=== PATIENT | female | born 2000 | race Caucasian/White ===

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

== ENCOUNTER 2019-03-31 10:30 | Day surgery (SDC) | payer OTHER ==
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
[2019-03-31] MEDS ORDERED: fentaNYL 100 MCG/2 ML VIAL IVP ONE (10:31)
[2019-03-31] MEDS ORDERED: PROPOFOL 200 MG/20 ML VIAL IVP ONE (10:31)
[2019-03-31] MEDS ORDERED: MIDAZOLAM 2 MG/2 ML VIAL IVP ONE (10:31)
[2019-03-31] MEDS ORDERED: LACTATED RINGERS 1,000 ML IV ONE (10:39)
[2019-03-31 11:17] LABS: HCG UR QUAL NEGATIVE
[2019-03-31] MEDS ORDERED: LIDOCAINE MPF 2%-EPI 1:200000 20 ML VIAL ONE (11:48)
[2019-03-31] MEDS ORDERED: LIDOCAINE 2%-EPI 1:100000 20 ML MDV SUBQ ONE ×2 (12:11)
[2019-03-31] MEDS ORDERED: SIMETHICONE 40 MG/0.6 ML 30 ML BOTTLE ONE (12:29)
[2019-03-31] MEDS ORDERED: SILVER NITRATE APPLICATOR TOP ONE ×2 (12:29→12:30)
[2019-03-31] MEDS ORDERED: LIDOCAINE 2% URO-JET 5 ML SYRINGE UR ONE (12:51)
[2019-03-31] MEDS ORDERED: KETOROLAC 30 MG/ML VIAL IVP PRN (13:05)
--- NOTE | 2019-03-31 13:05 | ANESTHESIA ---
Pre-Anesthesia VS, & Labs - Diagnosis pelvic pain, unable to evaluate in office - Procedure exam under anesthesia, partial hymenectomy Vital Signs: Temp Pulse Resp BP Pulse Ox 36.6 C 81 17 126/72 98 03/31/19 12:40 03/31/19 12:40 03/31/19 12:40 03/31/19 12:40 03/31/19 12:40 Height 5 ft 7 in Weight (kg) 98.3 kg Body Mass Index 26.9 - NPO >8 hours - Is Patient ?: No Home Medications and Allergies Home Medications: Ambulatory Orders Escitalopram Oxalate [Lexapro] 20 mg PO DAILY PM 03/30/19 Multivitamin [Multivitamins] 1 each PO DAILY 03/30/19 Psyllium Husk [Fiber] 0.4 gm PO BID 03/31/19 Cholecalciferol [Vitamin D3] 5,000 cap PO DAILY 04/16/17 Escitalopram Oxalate [Lexapro] 20 mg PO DAILY PM 03/30/19 Multivitamin [Multivitamins] 1 each PO DAILY 03/30/19 Psyllium Husk [Fiber] 0.4 gm PO BID 03/31/19 Allergies/Adverse Reactions: Allergies Allergy/AdvReac Type Severity Reaction Status Date / Time prednisone AdvReac extreme Verified 03/31/19 11:04 shaking Anes History & Medical History - Anesthetic History Anesthesia Complications: reports: No previous complications - Medical History Cardiovascular: reports: None Pulmonary: reports: None Gastrointestinal: reports: None Urinary: reports: Chronic bladder infection Musculoskeletal: reports: None Endocrine/Autoimmune: reports: None Skin: reports: None Smoking Status: Never smoker Exam General: Alert Dental: WNL Mallampati classification: II Thyromental Distance: greater than 6 cm Respiratory: Lungs clear Cardiovascular: Regular rate Mental/Cognitive Status: Alert/Oriented X3 Plan Anesthesia Type: MAC Consent for Procedure(s) Verified and Reviewed: Yes Code Status: Attempt Resuscitation ASA classification: 2-Mild systemic disease Is this case an emergency?: No
[2019-03-31] MEDS ORDERED: ACETAMINOPHEN 1,000 MG/100 ML 100 ML IV ONE ×2 (13:06→13:16)
[2019-03-31] MEDS ORDERED: KETOROLAC 30 MG/ML VIAL ONE (13:15)
[2019-03-31 14:12] VITALS: BP 133/62
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
== END 2019-03-31 10:31 | disposition home or self-care (01) ==
LOC: SDS 10:30
PROVIDERS: ATTEND Obstetrics & Gynecology
PROC: 0UBK7ZZ Excision of Hymen, Via Natural or Artificial Opening (ICD-10-PCS; principal; 2019-03-31 11:30)
DX: N89.6 Tight hymenal ring (principal); N94.11 Superficial (introital) dyspareunia; Z62.810 Personal history of physical and sexual abuse in childhood
CPT/HCPCS: 56700; 81025; J0131; J7120

== ENCOUNTER 2019-04-19 20:10 | Emergency (ER) | payer OTHER ==
[2019-04-19 20:17] VITALS: BP 141/76
[2019-04-19 20:39] LABS: BASOPHILS % (AUTO) 0.5 %; EOSINOPHILS # (AUTO) 0.4 10^3/uL (0.0-0.7); EOSINOPHILS % (AUTO) 4.3 %; HGB - HEMOGLOBIN 12.8 g/dL (12.0-16.0); LYMPHOCYTES # (AUTO) 3.1 10^3/uL (1.5-3.5); LYMPHOCYTES % (AUTO) 35.7 %; MEAN CORPUSCULAR HEMOGLOBIN 27.8 pg (27.0-31.0); MEAN CORPUSCULAR HGB CONC 31.8 g/dL (32.0-36.0); MEAN CORPUSCULAR VOLUME 87.4 fL (81.0-99.0); MEAN PLATELET VOLUME 9.6 fL (7.9-10.8); MONOCYTES # (AUTO) 0.7 10^3/uL (0.0-1.0); MONOCYTES % (AUTO) 7.6 %; NEUTROPHILS # (AUTO) 4.5 10^3/uL (1.5-6.6); NEUTROPHILS % (AUTO) 51.8 %; PLT - PLATELET COUNT 388 10^3/uL (130-450); RED BLOOD COUNT 4.61 10^6/uL (4.20-5.40); RED CELL DISTRIBUTION WIDTH 12.6 % (12.0-15.0); WHITE BLOOD COUNT 8.6 x10^3/uL (4.8-10.8)
[2019-04-19 20:54] LABS: ALBUMIN 4.1 g/dL (3.2-5.5); BILIRUBIN,TOTAL 0.5 mg/dL (0.2-1.0); CALCIUM 9.5 mg/dL (8.5-10.3); CREATININE 0.6 mg/dL (0.4-1.0); TOTAL PROTEIN 8.4 g/dL (6.7-8.2)
--- NOTE | 2019-04-19 21:10 | XRAY Report ---
Reason: chest pain Procedure Date: 04/19/2019 Accession Number: [id number] / [id number] Procedure: XR - Chest 2 View X-Ray CPT Code: 21883 Final Report FULL RESULT: EXAM: CHEST RADIOGRAPHY EXAM DATE: 04/19/2019 08:44 PM. CLINICAL HISTORY: Chest pain. COMPARISON: CHEST 2 VIEW 08/20/2018 10:23 PM CHEST W/O 08/26/2018 12:43 PM. TECHNIQUE: 2 views. FINDINGS: Lungs/Pleura: No focal opacities evident. No pleural effusion. No pneumothorax. Normal volumes. Mediastinum: Heart and mediastinal contours are unremarkable. Other: No acute osseous abnormalities. IMPRESSION: 1. No disease in the chest. RADIA
[2019-04-19 22:30] LABS: BILIRUBIN,URINE NEGATIVE (NEGATIVE); GLUCOSE, URINE (UA) NEGATIVE (NEGATIVE); KETONES,URINE (UA) NEGATIVE (NEGATIVE); LEUKOCYTE ESTERASE, URINE NEGATIVE (NEGATIVE); NITRITE,URINE NEGATIVE (NEGATIVE); OCCULT BLOOD,URINE LARGE (NEGATIVE); PH,URINE 6.5 PH (5.0-7.5); PROTEIN,URINE NEGATIVE (NEGATIVE); UROBILINOGEN,URINE 0.2 (NORMAL) E.U./dL (NORMAL)
[2019-04-19 22:32] LABS: CLARITY,URINE CLEAR (CLEAR); HCG UR QUAL NEGATIVE
[2019-04-19 22:38] LABS: BACTERIA,URINE Rare /HPF (None Seen); RBC,URINE TNTC /HPF (0-5); SQUAMOUS EPITHELIAL CELL,UR FEW Squamous (<= Few)
== END 2019-04-19 21:15 | disposition left against medical advice (07) ==
LOC: ED 20:10
DX: Z53.21 Procedure and treatment not carried out due to patient leaving prior to being seen by health care provider (principal)
CPT/HCPCS: 36415; 71046; 80053; 81001; 81003; 81025; 83690; 85025; 87086; 93005

== ENCOUNTER 2019-05-16 20:17 | Emergency (ER) | payer OTHER ==
[2019-05-16 20:26] VITALS: BP 132/69
== END 2019-05-16 20:54 | disposition left against medical advice (07) ==
LOC: ED 20:17
DX: Z53.21 Procedure and treatment not carried out due to patient leaving prior to being seen by health care provider (principal)

== ENCOUNTER 2019-05-26 08:00 | Outpatient (CLI) | payer OTHER | END 2019-05-26 23:59 | disposition home or self-care (01) | LOC: LAB.WCP 08:00 | PROVIDERS: ATTEND Physician Assistant | DX: F41.9 Anxiety disorder, unspecified (principal); M25.50 Pain in unspecified joint | CPT/HCPCS: 36415; 84443; 85651; 86038 ==

== ENCOUNTER 2019-08-20 04:50 | Emergency (ER) | payer OTHER ==
--- NOTE | 2019-08-20 05:01 | ED Physician Documentation ---
PD HPI FEMALE - Stated complaint Stated Complaint: FEM /CRAMPING - Chief complaint Chief Complaint: Abd Pain - History obtained from History obtained from: Patient - History of Present Illness Timing - onset: How many hours ago (4) Timing - duration: Hours Timing - details: Gradual onset, Constant, Waxing and waning Pain level max: 6 Associated symptoms: Pelvic pain, Vaginal bleeding. No: Fever Contributing factors: IUD. No: - Additional information Additional information: patient had IUD placed 08/10. She c/o 4 hours of pelvic cramping with vaginal bleeding. She says she had similar, though milder, pelvic cramping several days ago but otherwise has not had this cramping before. Review of Systems Constitutional: denies: Fever, Chills, Sweats GI: denies: Abdominal Pain, Nausea, Vomiting : denies: Dysuria, Frequency, Now EGA PD PAST MEDICAL HISTORY - Past Medical History Past Medical History: Yes Cardiovascular: None Respiratory: None Endocrine/Autoimmune: None GI: None : Chronic bladder infection HEENT: None Psych: Depression, Anxiety Musculoskeletal: None Derm: None Other Past Medical History: Fibromyalgia - Past Surgical History Past Surgical History: No - Present Medications Home Medications: Ambulatory Orders Medication Instructions Recorded Confirmed Cholecalciferol [Vitamin D3] 5,000 cap PO DAILY 04/16/17 03/30/19 Albuterol Sulf [Ventolin Hfa 1 - 2 puffs INH Q4HR PRN #1 inhaler 08/20/18 03/31/19 Inhaler] Escitalopram Oxalate [Lexapro] 20 mg PO DAILY PM 03/30/19 03/30/19 Multivitamin [Multivitamins] 1 each PO DAILY 03/30/19 03/30/19 Psyllium Husk [Fiber] 0.4 gm PO BID 03/31/19 03/31/19 - Allergies Allergies/Adverse Reactions: Allergies Allergy/AdvReac Type Severity Reaction Status Date / Time prednisone AdvReac extreme Verified 08/20/19 04:53 shaking - Social History Does the pt smoke?: No Smoking Status: Never smoker Does the pt drink ETOH?: No Does the pt have substance abuse?: Yes Substance Use and Type: Marijuana - Immunizations Immunizations are current?: Yes - POLST Patient has POLST: No PD ED PE NORMAL - Vitals Vital signs reviewed: Yes - General General: Alert and oriented X 3, Well developed/nourished, Other (appears uncomfortable and very anxious) - Abdomen Abdomen: Soft, Non tender - Back Back: No CVA TTP PD ED PE EXPANDED - Female Female : Normal external, Vaginal Bleeding (scant), Member Services Representative present (RN Carli Ho) Results - Vitals Vitals: Vital Signs - 24 hr 08/20/19 08/20/19 04:53 05:04 Temperature 36.9 C Heart Rate 88 110 H Respiratory 20 20 Rate Blood Pressure 151/87 H O2 Saturation 100 100 Oxygen O2 Source Room air PD MEDICAL DECISION MAKING - ED course Complexity details: considered differential, d/w patient ED course: Patient contacted her beam press operator and was advised to go to ED for removal of IUD, which she requests to have performed. I was able to remove the IUD without difficulty or complications and she appeared comfortable and no longer anxious, requests d/c home. I encouraged her to f/u with beam press operator but return if worse in any way. Departure - Departure Disposition: 01 Home, Self Care Clinical Impression: Pelvic pain Condition: Good Instructions: ED Pelvic Pain [facility] Follow-Up: Oleksandr Newton MD [Provider Admit Priv/Credential] - Discharge Date/Time: 08/20/19 05:38
[2019-08-20 05:05] VITALS: BP 151/87
== END 2019-08-20 05:38 | disposition home or self-care (01) ==
LOC: ED 04:50
DX: R10.2 Pelvic and perineal pain (principal); N93.9 Abnormal uterine and vaginal bleeding, unspecified; Z30.432 Encounter for removal of intrauterine contraceptive device
CPT/HCPCS: 58301; 99283

== ENCOUNTER 2019-10-18 06:28 | Emergency (ER) | payer OTHER ==
--- NOTE | 2019-10-18 07:01 | ED Physician Documentation ---
PD HPI HEENT - Stated complaint Stated Complaint: BUMP BEHIND R EAR - Chief complaint Chief Complaint: Heent - History obtained from History obtained from: Patient - History of Present Illness Timing - onset: How many days ago (few) Timing - duration: Days (few) Timing - details: Gradual onset (but much bigger the past day) Location: Right ear (behind the ear. No noted injury, rash, sores prior. Noted some tenderness then progression of swelling over few days. No drainage.) Associated symptoms: No: Fever, Congestion Similar symptoms before: Has not had sx before Review of Systems Ears: denies: Loss of hearing, Drainage/discharge Nose: denies: Rhinorrhea / runny nose, Congestion Throat: denies: Sore throat Respiratory: denies: Cough GI: reports: Nausea (for 1-2 weeks) : reports: Dysuria. 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 : Chronic bladder infection HEENT: None Psych: Depression, Anxiety Musculoskeletal: None Derm: None Other Past Medical History: fibromyalgia, Vaginismus - Past Surgical History Past Surgical History: No - Present Medications Home Medications: Ambulatory Orders Medication Instructions Recorded Confirmed DULoxetine [Cymbalta] 60 mg DAILY 10/18/19 10/18/19 Ethinyl Estradiol/Drospirenone 1 tab DAILY 10/18/19 10/18/19 [Gillian 28 Tablet] Mupirocin 1 applic TP TID #15 g 10/18/19 Naproxen 375 mg PO BID #20 tablet 10/18/19 Sulfamethox/Trimeth 800/160 1 each PO BID #10 tablet 10/18/19 [Bactrim Ds 800/160] - Allergies Allergies/Adverse Reactions: Allergies Allergy/AdvReac Type Severity Reaction Status Date / Time prednisone AdvReac extreme Verified 10/18/19 06:36 shaking - Social History Does the pt smoke?: No Smoking Status: Never smoker Does the pt drink ETOH?: No Does the pt have substance abuse?: No Substance Use and Type: Marijuana - Immunizations Immunizations are current?: Yes - POLST Patient has POLST: No PD ED PE NORMAL - Vitals Vital signs reviewed: Yes - General General: Alert and oriented X 3, No acute distress, Well developed/nourished - HEENT HEENT: Pharynx benign, Other (TM and canal are normal. behind right ear in postauricular crease shows rounded soft fluctuance bubble about 1 cm diameter raised above surface, with redness of skin surrounding it about 1 cm. No deeper inflammation. ) - Neck Neck: Supple, no meningeal sign, No adenopathy - Cardiac Cardiac: RRR, No murmur - Respiratory Respiratory: Clear bilaterally - Abdomen Abdomen: Soft, Non tender - Back Back: No CVA TTP - Derm Derm: Warm and dry Results - Vitals Vitals: Vital Signs - 24 hr 10/18/19 10/18/19 06:33 08:17 Temperature 36.1 C L Heart Rate 76 63 Respiratory 16 18 Rate Blood Pressure 139/77 H 135/76 H O2 Saturation 99 100 Oxygen O2 Source Room air - Labs Labs: Laboratory Tests 10/18/19 07:40 Urine Color YELLOW Urine Clarity CLEAR Urine pH 6.0 Ur Specific [place] 1.025 Urine Protein NEGATIVE Urine Glucose (UA) NEGATIVE Urine Ketones NEGATIVE Urine Occult Blood NEGATIVE Urine Nitrite NEGATIVE Urine Bilirubin NEGATIVE Urine Urobilinogen 0.2 (NORMAL) Ur Leukocyte Esterase NEGATIVE Ur Microscopic Review NOT INDICATED Urine Culture Comments NOT INDICATED Urine HCG, Qual NEGATIVE Procedures - Abscess I&D (location) right postauricular Preparation: Other (the skin was very thin overlying it, so no anesth needed. Scalpel tip nicked the skin and got about 1 ml of pus out. Culture obtained.) Incision: Incised with scalpel, Purulent drainage, Culture obtained Other: Pt tolerated well PD MEDICAL DECISION MAKING - ED course Complexity details: considered differential (superficial skin abscess. Will treat as staph. ), d/w patient Departure - Departure Disposition: 01 Home, Self Care Clinical Impression: Abscess of skin Qualifiers: Site of cutaneous abscess: head Qualified Code(s): L02.811 - Cutaneous abscess of head [any part, except face] Condition: Stable Record reviewed to determine appropriate education?: Yes Instructions: ED Abscess IandD Follow-Up: Sraah Bautista PA [Primary Care Provider] - Prescriptions: Mupirocin 1 applic TP TID #15 g Naproxen 375 mg PO BID #20 tablet Sulfamethox/Trimeth 800/160 [Bactrim Ds 800/160] 1 each PO BID #10 tablet Comments: Towels to the area periodically through the day today and tomorrow to promote bl ood flow and further drainage. Bactrim antibiotic twice daily for 5 days. Mupirocin topical antibiotic twice daily for 5 days or so until it seems well- healed. The abscess is deflated with the pus out at this time. You will still noticed some inflammation of the skin in the area and that should resolve over several days to week. Naproxen anti-inflammatory 2-3 times a day for the next several days to help with inflammation and pain as well. Recheck if not resolved fully over the next several days. Discharge Date/Time: 10/18/19 08:24
[2019-10-18 07:46] LABS: BILIRUBIN,URINE NEGATIVE (NEGATIVE); GLUCOSE, URINE (UA) NEGATIVE (NEGATIVE); KETONES,URINE (UA) NEGATIVE (NEGATIVE); LEUKOCYTE ESTERASE, URINE NEGATIVE (NEGATIVE); NITRITE,URINE NEGATIVE (NEGATIVE); OCCULT BLOOD,URINE NEGATIVE (NEGATIVE); PROTEIN,URINE NEGATIVE (NEGATIVE); UROBILINOGEN,URINE 0.2 (NORMAL) E.U./dL (NORMAL)
[2019-10-18 07:47] LABS: CLARITY,URINE CLEAR (CLEAR)
[2019-10-18 07:48] LABS: HCG UR QUAL NEGATIVE
[2019-10-18] MEDS ORDERED: SULFAMETH/TRIMETH DS 800/160 MG TABLET PO STA (08:06)
[2019-10-18] MEDS ORDERED: MUPIROCIN 2% OINT 1 GM TOP STA (08:06)
[2019-10-18] MEDS ORDERED: ACETAMINOPHEN 325 MG TABLET PO STA (08:10)
[2019-10-18 08:17] VITALS: BP 135/76
== END 2019-10-18 08:24 | disposition home or self-care (01) ==
LOC: ED 06:28
DX: L02.811 Cutaneous abscess of head [any part, except face] (principal)
CPT/HCPCS: 10060; 81003; 81025; 87070; 87205; 99283; 99284; A9270; 81001; 87077; 87086; 87181

== ENCOUNTER 2019-11-15 07:33 | Outpatient (CLI) | payer OTHER ==
[2019-11-15 12:20] LABS: CRP - C-REACTIVE PROTEIN < 1.0 mg/dL (0-1.0)
[2019-11-15 12:21] LABS: URIC ACID 3.7 mg/dL (2.6-7.2)
[2019-11-15 12:45] LABS: RHEUMATOID FACTOR NEGATIVE (Negative)
== END 2019-11-15 23:59 | disposition home or self-care (01) ==
LOC: LAB.WCP 07:33
PROVIDERS: ATTEND Physician Assistant Medical
DX: M25.50 Pain in unspecified joint (principal)
CPT/HCPCS: 36415; 81599; 84550; 85651; 86038; 86140; 86225; 86430; 86812

== ENCOUNTER 2019-11-23 07:38 | Emergency (ER) | payer OTHER ==
[2019-11-23 07:56] VITALS: BP 137/79
--- NOTE | 2019-11-23 07:58 | ED Physician Documentation ---
PD HPI BACK PAIN - Stated complaint Stated Complaint: BACK/SHOULDER PX - Chief complaint Chief Complaint: Back Pain - Additional information Additional information: 19-year-old with fibromyalgia. Recently started gabapentin at night and also is on duloxetine. She has had pain in the posterior left shoulder towards the spine. She took naproxen and a muscle relaxer without relief. No shortness of breath or chest pain. No possibility of . Pain worse since last night. 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 : Chronic bladder infection HEENT: None Psych: Depression, Anxiety Musculoskeletal: None Derm: None - Past Surgical History Past Surgical History: No - Present Medications Home Medications: Ambulatory Orders Medication Instructions Recorded Confirmed DULoxetine [Cymbalta] 60 mg DAILY 10/18/19 10/18/19 Ethinyl Estradiol/Drospirenone 1 tab DAILY 10/18/19 10/18/19 [Gillian 28 Tablet] Mupirocin 1 applic TP TID #15 g 10/18/19 Naproxen 375 mg PO BID #20 tablet 10/18/19 Sulfamethox/Trimeth 800/160 1 each PO BID #10 tablet 10/18/19 [Bactrim Ds 800/160] Gabapentin [Neurontin] 300 mg PO TID #14 capsule 11/23/19 - Allergies Allergies/Adverse Reactions: Allergies Allergy/AdvReac Type Severity Reaction Status Date / Time prednisone AdvReac extreme Verified 10/18/19 06:36 shaking - Social History Does the pt smoke?: No Smoking Status: Never smoker Does the pt drink ETOH?: No Does the pt have substance abuse?: No - Immunizations Immunizations are current?: Yes - POLST Patient has POLST: No PD ED PE NORMAL - Vitals Vital signs reviewed: Yes - General General: Alert and oriented X 3, No acute distress - Back Back: Other (Mild muscular tenderness of the trapezius and rhomboid on the right and parathoracic and paralumbar muscles bilaterally. No midline spinal tenderness.) - Extremities Extremities: Other (Equal bilateral needle valve operator strength, thumb extension, interosseous strength, flexion extension at the wrist. The patient has equal and normal Achilles and patellar reflexes bilaterally. Normal sensation in all areas of the legs. Patient denies saddle anesthesia. ) - Neuro Neuro: Alert and oriented X 3, Normal speech Results - Vitals Vitals: Vital Signs - 24 hr 11/23/19 07:52 Temperature 36.6 C Heart Rate 81 Respiratory 18 Rate O2 Saturation 100 Oxygen O2 Source Room air PD MEDICAL DECISION MAKING - ED course ED course: 19-year-old with exacerbation of fibromyalgia. No apparent emergency medical condition. Has specific request for tramadol, discussed that risk-benefit ratio for tramadol is very poor, studies show it is no better than Tylenol for pain management and has significant side effects such as seizures. Departure - Departure Disposition: 01 Home, Self Care Clinical Impression: Fibromyalgia muscle pain Condition: Good Record reviewed to determine appropriate education?: Yes Instructions: ED Chronic Pain Management, Fibromyalgia Prescriptions: Gabapentin [Neurontin] 300 mg PO TID #14 capsule Comments: During a flare you can continue naproxen and your muscle relaxer, we are increasing her gabapentin to 3 times a day. You asked for tramadol which is probably not a good medication for management for fibromyalgia in my opinion. Return for new or worsening symptoms. Follow-up with your doctor, next available appointment.
== END 2019-11-23 08:15 | disposition home or self-care (01) ==
LOC: ED 07:38
DX: M79.7 Fibromyalgia (principal); M54.2 Cervicalgia; M54.6 Pain in thoracic spine; M41.9 Scoliosis, unspecified; M25.561 Pain in right knee
CPT/HCPCS: 72040; 72072; 99282; 99283

== ENCOUNTER 2020-01-16 10:35 | Outpatient (CLI) | payer OTHER | END 2020-01-16 10:36 | disposition critical access hospital (66) | LOC: EMS 10:35 | PROVIDERS: ATTEND Surgery | DX: T43.012A Poisoning by tricyclic antidepressants, intentional self-harm, initial encounter (principal) | CPT/HCPCS: A0425; A0429 ==

== ENCOUNTER 2020-01-16 10:52 | Emergency (ER) | payer OTHER ==
[2020-01-16 11:19] LABS: MUDS CUTOFF CONCENTRATIONS CUTOFF CONC BELOW:
[2020-01-16 11:35] LABS: BASOPHILS % (AUTO) 0.4 %; EOSINOPHILS % (AUTO) 0.3 %; HGB - HEMOGLOBIN 13.3 g/dL (12.0-16.0); LYMPHOCYTES # (AUTO) 1.9 10^3/uL (1.5-3.5); LYMPHOCYTES % (AUTO) 18.9 %; MEAN CORPUSCULAR HEMOGLOBIN 28.5 pg (27.0-31.0); MEAN CORPUSCULAR HGB CONC 33.3 g/dL (32.0-36.0); MEAN CORPUSCULAR VOLUME 85.6 fL (81.0-99.0); MEAN PLATELET VOLUME 10.3 fL (7.9-10.8); MONOCYTES # (AUTO) 0.5 10^3/uL (0.0-1.0); MONOCYTES % (AUTO) 5.2 %; NEUTROPHILS # (AUTO) 7.6 10^3/uL (1.5-6.6); NEUTROPHILS % (AUTO) 74.8 %; PLT - PLATELET COUNT 327 10^3/uL (130-450); RED BLOOD COUNT 4.66 10^6/uL (4.20-5.40); RED CELL DISTRIBUTION WIDTH 13.5 % (12.0-15.0); WHITE BLOOD COUNT 10.2 x10^3/uL (4.8-10.8)
[2020-01-16 11:35] LABS: BILIRUBIN,URINE NEGATIVE (NEGATIVE); GLUCOSE, URINE (UA) NEGATIVE (NEGATIVE); KETONES,URINE (UA) 15 mg/dL (NEGATIVE); LEUKOCYTE ESTERASE, URINE NEGATIVE (NEGATIVE); NITRITE,URINE NEGATIVE (NEGATIVE); OCCULT BLOOD,URINE LARGE (NEGATIVE); PROTEIN,URINE TRACE mg/dL (NEGATIVE); UROBILINOGEN,URINE 0.2 (NORMAL) E.U./dL (NORMAL)
[2020-01-16 11:37] LABS: CLARITY,URINE CLOUDY (CLEAR); HCG UR QUAL NEGATIVE
--- NOTE | 2020-01-16 11:38 | ED Physician Documentation ---
PD HPI MHE - Stated complaint Stated Complaint: MHE - Chief complaint Chief Complaint: MHE - History obtained from History obtained from: Patient, Family - History of Present Illness Primary symptom: Suicide attempt, Self harm - OD (amitryptilline OD) Timing - onset: How many hours ago (1.5) - Additional information Additional information: 19-year-old female presents to the emergency department after ingesting approximately 20 tabs of 10 mg amitriptyline today. She states she was trying to harm herself. Nothing makes it better or worse. She now feels drowsy. Has tachycardia. Review of Systems Ten Systems: 10 systems reviewed and negative Constitutional: denies: Fever, Chills Nose: denies: Rhinorrhea / runny nose, Congestion Throat: denies: Sore throat Cardiac: denies: Chest pain / pressure, Palpitations Respiratory: denies: Dyspnea, Cough GI: denies: Nausea, Vomiting, Diarrhea : denies: Dysuria Skin: denies: Rash Musculoskeletal: denies: Neck pain, Back pain Neurologic: denies: Focal weakness, Numbness Psychiatric: reports: Suicidal (Patient states that she was attempting to kill herself today. 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: Other : Chronic bladder infection HEENT: None Psych: Depression, Anxiety Musculoskeletal: Fibromyalgia Derm: None - Past Surgical History Past Surgical History: No - Present Medications Home Medications: Ambulatory Orders Medication Instructions Recorded Confirmed DULoxetine [Cymbalta] 60 mg DAILY 10/18/19 10/18/19 Ethinyl Estradiol/Drospirenone 1 tab DAILY 10/18/19 10/18/19 [Gillian 28 Tablet] Mupirocin 1 applic TP TID #15 g 10/18/19 Naproxen 375 mg PO BID #20 tablet 10/18/19 Sulfamethox/Trimeth 800/160 1 each PO BID #10 tablet 10/18/19 [Bactrim Ds 800/160] Gabapentin [Neurontin] 300 mg PO TID #14 capsule 11/23/19 - Allergies Allergies/Adverse Reactions: Allergies Allergy/AdvReac Type Severity Reaction Status Date / Time prednisone AdvReac extreme Verified 01/16/20 11:13 shaking - Social History Does the pt smoke?: No Smoking Status: Never smoker Does the pt drink ETOH?: No Does the pt have substance abuse?: No - Immunizations Immunizations are current?: Yes - POLST Patient has POLST: No PD ED PE NORMAL - Vitals Vital signs reviewed: Yes - General General: Alert and oriented X 3, No acute distress, Well developed/nourished - HEENT HEENT: PERRL, Moist mucous membranes - Neck Neck: Supple, no meningeal sign - Cardiac Cardiac: Other (Tachycardic) - Respiratory Respiratory: No respiratory distress, Clear bilaterally - Abdomen Abdomen: Soft, Non tender, Non distended - Derm Derm: Warm and dry - Extremities Extremities: No edema, No calf tenderness / cord - Neuro Neuro: Alert and oriented X 3 - Psych Psych: Normal mood, Normal affect Results - Vitals Vitals: Vital Signs - 24 hr 01/16/20 01/16/20 01/16/20 11:00 11:42 12:12 Temperature 37.0 C Heart Rate 153 H 100 109 H Respiratory 22 16 20 Rate Blood Pressure 143/89 H 122/80 121/83 H O2 Saturation 98 99 99 01/16/20 01/16/20 01/16/20 12:26 12:30 13:00 Temperature Heart Rate 120 H 84 Respiratory 13 25 H Rate Blood Pressure 121/83 H 128/83 H 116/70 O2 Saturation 100 100 01/16/20 01/16/20 01/16/20 13:30 13:52 14:30 Temperature 37 C Heart Rate 129 H 92 94 Respiratory 18 20 21 Rate Blood Pressure 116/70 115/70 115/76 O2 Saturation 100 100 99 01/16/20 01/16/20 01/16/20 15:00 15:25 16:00 Temperature Heart Rate 90 88 88 Respiratory 18 18 18 Rate Blood Pressure 115/62 112/66 112/62 O2 Saturation 100 99 100 01/16/20 16:30 Temperature Heart Rate 88 Respiratory 18 Rate Blood Pressure 115/68 O2 Saturation 99 Oxygen O2 Source Room air - EKG (time done) 1359 Rate: Rate (enter#) (82) Rhythm: NSR Connelly: Normal Intervals: Normal [place] QRS: Normal Ischemia: Non specific changes 1710 Rate: Rate (enter#) (111) Rhythm: Sinus tachycardia Connelly: Normal Intervals: Normal [place] QRS: Normal Ischemia: Non specific changes 1104 Rate: Rate (enter#) (149) Rhythm: Sinus tachycardia Connelly: Normal Intervals: Normal [place] QRS: Normal Ischemia: Non specific changes - Labs Labs: Laboratory Tests 01/16/20 01/16/20 01/16/20 11:10 11:15 11:15 WBC 10.2 RBC 4.66 Hgb 13.3 Hct 39.9 MCV 85.6 MCH 28.5 MCHC 33.3 RDW 13.5 Plt Count 327 MPV 10.3 Neut # (Auto) 7.6 H Lymph # (Auto) 1.9 Nolan # (Auto) 0.5 Eos # (Auto) 0.0 Baso # (Auto) 0.0 Absolute Nucleated RBC 0.00 Nucleated RBC % 0.0 Sodium 137 Potassium 3.3 L Chloride 104 Carbon Dioxide 24 Anion Gap 9.0 BUN 9 Creatinine 0.7 Estimated GFR (MDRD) 107 Glucose 122 H Calcium 9.3 Total Bilirubin 0.6 AST 23 ALT 22 Alkaline Phosphatase 80 Total Protein 7.8 Albumin 3.8 Globulin 4.0 Albumin/Globulin Ratio 1.0 Lipase 45 TSH Urine Color LT RED Urine Clarity CLOUDY Urine pH 8.0 H Ur Specific [place] 1.020 Urine Protein TRACE Urine Glucose (UA) NEGATIVE Urine Ketones 15 H Urine Occult Blood LARGE H Urine Nitrite NEGATIVE Urine Bilirubin NEGATIVE Urine Urobilinogen 0.2 (NORMAL) Ur Leukocyte Esterase NEGATIVE Urine RBC TNTC H Urine WBC 0-3 Ur Squamous Epith Cells FEW Squamous Urine Bacteria Few Ur Microscopic Review INDICATED Urine Culture Comments NOT INDICATED Urine HCG, Qual NEGATIVE Salicylates < 6.0 Urine Opiates Screen NEGATIVE Ur Oxycodone Screen NEGATIVE Urine Methadone Screen NEGATIVE Ur Propoxyphene Screen NEGATIVE Acetaminophen < 10 L Ur Barbiturates Screen NEGATIVE Ur Tricyclics Screen POSITIVE H Ur Phencyclidine Scrn NEGATIVE Ur Amphetamine Screen NEGATIVE U Methamphetamines Scrn NEGATIVE U Benzodiazepines Scrn NEGATIVE Urine Cocaine Screen NEGATIVE U Cannabinoids Screen POSITIVE H Ethyl Alcohol < 5.0 01/16/20 11:15 WBC RBC Hgb Hct MCV MCH MCHC RDW Plt Count MPV Neut # (Auto) Lymph # (Auto) Nolan # (Auto) Eos # (Auto) Baso # (Auto) Absolute Nucleated RBC Nucleated RBC % Sodium Potassium Chloride Carbon Dioxide Anion Gap BUN Creatinine Estimated GFR (MDRD) Glucose Calcium Total Bilirubin AST ALT Alkaline Phosphatase Total Protein Albumin Globulin Albumin/Globulin Ratio Lipase TSH 1.67 Urine Color Urine Clarity Urine pH Ur Specific [place] Urine Protein Urine Glucose (UA) Urine Ketones Urine Occult Blood Urine Nitrite Urine Bilirubin Urine Urobilinogen Ur Leukocyte Esterase Urine RBC Urine WBC Ur Squamous Epith Cells Urine Bacteria Ur Microscopic Review Urine Culture Comments Urine HCG, Qual Salicylates Urine Opiates Screen Ur Oxycodone Screen Urine Methadone Screen Ur Propoxyphene Screen Acetaminophen Ur Barbiturates Screen Ur Tricyclics Screen Ur Phencyclidine Scrn Ur Amphetamine Screen U Methamphetamines Scrn U Benzodiazepines Scrn Urine Cocaine Screen U Cannabinoids Screen Ethyl Alcohol PD MEDICAL DECISION MAKING - ED course Complexity details: reviewed results, re-evaluated patient, considered differential, d/w patient ED course: Patient took approximately 200 mg of amitriptyline today an attempt to overdose and kill herself. She is medically clear for psychiatric care. The phone call with poison control was made before the total dosage of amitriptyline was known. Social work refused to see the patient despite being told multiple times that the patient is medically clear for psychiatric care. They continued to refuse to see this patient. Therefore tele-psychiatry will be consulted for her instead. Patient will be signed out to the [facility] emergency department physician awaiting tele-psychiatry consult. This document was made in part using voice recognition software. While efforts are made to proofread this document, sound alike and grammatical errors may occur. Departure - Departure Clinical Impression: Attempted suicide Condition: Stable
[2020-01-16] MEDS: SODIUM CHLORIDE 0.9% 1,000 ML IV STA ×2 (11:41→12:02)
[2020-01-16] MEDS ORDERED: SODIUM BICARBONATE 150 MEQ in DEXTROSE 5% 1,000 ML IV STA (11:41)
[2020-01-16 11:49] LABS: BACTERIA,URINE Few /HPF (None Seen); RBC,URINE TNTC /HPF (0-5); SQUAMOUS EPITHELIAL CELL,UR FEW Squamous (<= Few)
[2020-01-16 11:49] LABS: ACETAMINOPHEN < 10 ug/mL (10-30); ALBUMIN 3.8 g/dL (3.2-5.5); ALKALINE PHOSPHATASE 80 IU/L (42-121); ALT ALANINE AMINOTRANSFERASE 22 IU/L (10-60); AST ASPARTATE AMINOTRANSFERASE 23 IU/L (10-42); BILIRUBIN,TOTAL 0.6 mg/dL (0.2-1.0); BUN - BLOOD UREA NITROGEN 9 mg/dL (6-20); CALCIUM 9.3 mg/dL (8.5-10.3); CARBON DIOXIDE - CO2 24 mmol/L (21-32); CHLORIDE 104 mmol/L (101-111); CREATININE 0.7 mg/dL (0.4-1.0); GLUCOSE 122 mg/dL (70-100); LIPASE 45 U/L (22-51); SALICYLATE < 6.0 mg/dL; SODIUM 137 mmol/L (135-145); TOTAL PROTEIN 7.8 g/dL (6.7-8.2)
[2020-01-16 12:01] LABS: AMPHETAMINE SCREEN,URINE NEGATIVE (NEGATIVE); BENZODIAZEPINES SCREEN, URINE NEGATIVE (NEGATIVE); COCAINE SCREEN URINE NEGATIVE (NEGATIVE); METHADONE SCREEN, URINE NEGATIVE (NEGATIVE); METHAMPHETAMINES SCREEN, URINE NEGATIVE (NEGATIVE); OPIATE SCREEN, URINE NEGATIVE (NEGATIVE); OXYCODONE SCREEN, URINE NEGATIVE (NEGATIVE); PROPOXYPHENE SCREEN, URINE NEGATIVE (NEGATIVE); TRICYCLIC ANTIDEPRESSANT,URINE POSITIVE (NEGATIVE)
[2020-01-16] MEDS ORDERED: LORazepam 1 MG TABLET PO STA (19:12)
--- NOTE | 2020-01-16 19:13 | ED Physician Documentation ---
ED Addendum - Addendum Addendum: 01/16/20 19:[address] Agudelo at shift change. Briefly this is a young woman who earlier today tried to kill herself with an overdose. She is requesting to leave, but not britany for safety. Discussed with her that she could not be discharged nor could she signed AMA. 01/16/20 20:35 She was seen by the tele-psychiatric reservoir engineering consultant and confirmed that inpatient involuntary stay was required and recommends DCR evaluation for same and the DCR was dispatched. PRN benzodiazepines for anxiety. 01/16/20 21:57 Care to overnight MD at shift change to followup on DCR eval.
[2020-01-16] MEDS ORDERED: LORazepam 2 MG/ML VIAL IVP STA (19:51)
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
[2020-01-16 23:57] VITALS: BP 111/87
--- NOTE | 2020-01-17 02:45 | ED Physician Documentation ---
ED Addendum - Addendum Addendum: 01/17/20 02:40 The [facility] Melissa talked with me prior to evaluating the patient. I conveyed to her the strong opinion of the prior ER physicians that the patient may need hospitalization. She did review the tele-psych report as well. She then talked with the patient as well as her mother and boyfriend. The [facility] P did feel the patient was remorseful of the overdose and the patient felt strongly that she did not want to hurt herself any further. The patient states she wanted to just be home and in bed. The patient's mother was wanting the patient home as well and states she would provide a safe environment. Refer to [facility] report. Therefore the [facility] P did not feel the patient warranted involuntary hospitalization. As such, I did not have a reason to hold her in the ER any further. She states to me that she will not hurt herself and has the safety plan of talking to her mother or calling the crisis line if she feels stressed. She is forward looking with desired activities in the near future. She is therefore discharged in stable condition.
== END 2020-01-17 | disposition home or self-care (01) ==
LOC: EDUNIT# → ED 10:52
DX: T43.012A Poisoning by tricyclic antidepressants, intentional self-harm, initial encounter (principal); R00.0 Tachycardia, unspecified; F33.2 Major depressive disorder, recurrent severe without psychotic features; F43.10 Post-traumatic stress disorder, unspecified; F41.9 Anxiety disorder, unspecified; M79.7 Fibromyalgia
CPT/HCPCS: 36415; 80320; 80329; 81001; 81025; 83690; 93005; 96361; 96365; 96366; 96375; 99284; J2060; 80053; 80306; 80307; 81003; 84443; 85025; 87086

== ENCOUNTER 2020-05-24 16:38 | Outpatient (CLI) | payer OTHER ==
[2020-05-24 18:45] LABS: BASOPHILS % (AUTO) 0.5 %; EOSINOPHILS # (AUTO) 0.1 10^3/uL (0.0-0.7); HGB - HEMOGLOBIN 13.8 g/dL (12.0-16.0); LYMPHOCYTES # (AUTO) 2.6 10^3/uL (1.5-3.5); MEAN CORPUSCULAR HEMOGLOBIN 28.2 pg (27.0-31.0); MEAN CORPUSCULAR HGB CONC 32.2 g/dL (32.0-36.0); MEAN CORPUSCULAR VOLUME 87.3 fL (81.0-99.0); MEAN PLATELET VOLUME 10.7 fL (7.9-10.8); MONOCYTES # (AUTO) 0.4 10^3/uL (0.0-1.0); MONOCYTES % (AUTO) 6.9 %; NEUTROPHILS % (AUTO) 48.4 %; PLT - PLATELET COUNT 306 10^3/uL (130-450); RED CELL DISTRIBUTION WIDTH 13.3 % (12.0-15.0); WHITE BLOOD COUNT 6.1 x10^3/uL (4.8-10.8)
[2020-05-24 18:58] LABS: ALBUMIN 4.1 g/dL (3.2-5.5); ALBUMIN/GLOBULIN RATIO 1.2 (1.0-2.2); BILIRUBIN,TOTAL 0.4 mg/dL (0.2-1.0); CALCIUM 9.7 mg/dL (8.5-10.3); CREATININE 0.8 mg/dL (0.4-1.0); TOTAL PROTEIN 7.6 g/dL (6.7-8.2)
== END 2020-05-24 23:59 | disposition home or self-care (01) ==
LOC: LAB.WCP 16:38
PROVIDERS: ATTEND Physician Assistant Medical
DX: R11.2 Nausea with vomiting, unspecified (principal)
CPT/HCPCS: 36415; 80053; 83690; 85025; 87338

== ENCOUNTER 2020-05-25 14:15 | Outpatient (CLI) | payer OTHER ==
[2020-05-25 20:51] LABS: H. PYLORIS ANTIGEN STL NEGATIVE (Negative)
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
== END 2020-05-25 23:59 | disposition home or self-care (01) ==
LOC: LAB.WCP 14:15
PROVIDERS: ATTEND Physician Assistant Medical
DX: R11.2 Nausea with vomiting, unspecified (principal)
CPT/HCPCS: 87338

== ENCOUNTER 2020-06-01 13:43 | Outpatient (CLI) | payer OTHER ==
--- NOTE | 2020-06-01 16:41 | Ultrasound Report ---
PROCEDURE: Abdomen Limited INDICATIONS: NAUSEA AND VOMITING TECHNIQUE: Real-time focused scanning was performed of the abdomen, with image documentation. COMPARISON: None. FINDINGS: Liver measures 14.9 cm in length and is normal. Gallbladder is unremarkable. No sonographi c Rae sign. No intra or extrahepatic bile duct dilatation. The pancreas is unremarkable Right kidney 9.0 cm in length and is unremarkable. The IVC appears patent. IMPRESSION: Negative examination as above. Normal appearance of the gallbladder. Reviewed by: Bello Purdy MD on 06/01/2020 4:40 PM PST Approved by: Bello Purdy MD on 06/01/2020 4:40 PM PST Station ID: [id number]
== END 2020-06-01 13:44 | disposition home or self-care (01) ==
LOC: DI 13:43
PROVIDERS: ATTEND Physician Assistant Medical
DX: R11.2 Nausea with vomiting, unspecified (principal)

== ENCOUNTER 2020-06-28 07:00 | Outpatient (CLI) | payer OTHER | END 2020-06-28 23:59 | disposition home or self-care (01) | LOC: COV 07:00 | PROVIDERS: ATTEND Family Medicine | DX: U07.1 COVID-19 (principal) ==

== ENCOUNTER 2020-09-26 08:00 | Outpatient (CLI) | payer OTHER ==
[2020-09-26 20:16] LABS: BACTERIAL VAGINOSIS DNA NEGATIVE (NEGATIVE); CANDIDA GLABRATA DNA NEGATIVE (NEGATIVE); CANDIDA GROUP DNA NEGATIVE (NEGATIVE); CANDIDA KRUSEI DNA NEGATIVE (NEGATIVE); TRICHOMONAS VAGINALIS DNA NEGATIVE (NEGATIVE)
[2020-09-26 21:01] LABS: CHLAMYDIA TRACHOMATIS DNA NEGATIVE (NEGATIVE); NEISSERIA GONORRHOEAE DNA NEGATIVE (NEGATIVE); TRICHOMONAS VAGINALIS DNA NEGATIVE (NEGATIVE)
== END 2020-09-26 23:59 | disposition home or self-care (01) ==
LOC: LAB.N 08:00
PROVIDERS: ATTEND Family Medicine
DX: R39.9 Unspecified symptoms and signs involving the genitourinary system (principal)
CPT/HCPCS: 87086; 87491; 87591; 87661; 87801

== ENCOUNTER 2020-12-20 08:00 | Outpatient (CLI) | payer OTHER | END 2020-12-20 23:59 | disposition home or self-care (01) | LOC: LAB.WCP 08:00 | PROVIDERS: ATTEND Physician Assistant Medical | DX: R39.9 Unspecified symptoms and signs involving the genitourinary system (principal) | CPT/HCPCS: 87086 ==

== ENCOUNTER 2021-03-28 15:55 | Outpatient (CLI) | payer OTHER | END 2021-03-28 23:59 | disposition home or self-care (01) | LOC: LAB.N 15:55 | PROVIDERS: ATTEND Physician Assistant | DX: N89.8 Other specified noninflammatory disorders of vagina (principal) | CPT/HCPCS: 87070; 87077; 87181; 87205 ==

== ENCOUNTER 2021-04-25 08:00 | Outpatient (CLI) | payer OTHER ==
[2021-04-26 22:44] LABS: CHLAMYDIA TRACHOMATIS DNA NEGATIVE (NEGATIVE); NEISSERIA GONORRHOEAE DNA NEGATIVE (NEGATIVE); TRICHOMONAS VAGINALIS DNA NEGATIVE (NEGATIVE)
== END 2021-04-25 23:59 | disposition home or self-care (01) ==
LOC: LAB.WC 08:00
PROVIDERS: ATTEND Obstetrics & Gynecology
DX: Z11.3 Encounter for screening for infections with a predominantly sexual mode of transmission (principal)
CPT/HCPCS: 87491; 87591; 87661

== ENCOUNTER 2022-03-03 15:16 | Outpatient (CLI) | payer OTHER ==
--- NOTE | 2022-03-03 20:06 | XRAY Report ---
PROCEDURE: Thoracic Spine 3 View INDICATIONS: THORACIC BACK PX TECHNIQUE: 3 views of the thoracic spine were acquired. COMPARISON: X-ray thoracic spine, 11/23/2019. FINDINGS: Bones: No fractures or dislocations. There is a 7 degreedextro scoliosis with apex at T6-T7. No vinnie picious bony lesions. 12 pairs of ribs are noted, and appear intact where visualized. Soft tissues: No paravertebral stripe thickening. IMPRESSION: Mild dextroscoliosis. Reviewed by: Moris Low MD on 03/03/2022 8:05 PM PDT Approved by: Moris Low MD on 03/03/2022 8:05 PM PDT Station ID: [id number]
--- NOTE | 2022-03-03 20:06 | XRAY Report ---
PROCEDURE: Cervical Spine 2 View INDICATIONS: NECK PX TECHNIQUE: 3 view(s) of the cervical spine were acquired. COMPARISON: X-ray cervical spine, 10/24/2019. FINDINGS: Bones: No fractures or dislocations to the T1 level. Loss of cervical lordosis. The lateral masses of C1 appear intact on the odontoid view. No suspicious bony lesions. Soft tissues: No prevertebral soft tissue swelling. IMPRESSION: 1. No acute osseous abnormalities. 2. Loss of cervical lordosis, which may be secondary to positioning or muscle spasm. Reviewed by: Moris Low MD on 03/03/2022 8:05 PM PDT Approved by: Moris Low MD on 03/03/2022 8:05 PM PDT Station ID: [id number]
== END 2022-03-03 15:17 | disposition home or self-care (01) ==
LOC: DI.N 15:16
PROVIDERS: ATTEND Physician Assistant Medical
DX: M54.2 Cervicalgia (principal); M54.6 Pain in thoracic spine; M41.9 Scoliosis, unspecified; J06.9 Acute upper respiratory infection, unspecified; Z20.822 Contact with and (suspected) exposure to COVID-19

== ENCOUNTER 2022-05-19 13:37 | Outpatient (CLI) | payer OTHER | END 2022-05-19 13:38 | disposition home or self-care (01) | LOC: LAB 13:37 | PROVIDERS: ATTEND Physician Assistant Medical | DX: Z71.9 Counseling, unspecified (principal) | CPT/HCPCS: 81599; 86480 ==

== ENCOUNTER 2022-07-05 09:16 | Emergency (ER) | payer OTHER ==
[2022-07-05 09:48] LABS: BASOPHILS # (AUTO) 0.1 10^3/uL (0.0-0.1); BASOPHILS % (AUTO) 0.3 %; EOSINOPHILS # (AUTO) 0.2 10^3/uL (0.0-0.7); EOSINOPHILS % (AUTO) 0.8 %; HCT - HEMATOCRIT 47.8 % (37.0-47.0); HGB - HEMOGLOBIN 15.4 g/dL (12.0-16.0); LYMPHOCYTES # (AUTO) 1.7 10^3/uL (1.5-3.5); LYMPHOCYTES % (AUTO) 8.5 %; MEAN CORPUSCULAR HEMOGLOBIN 28.9 pg (27.0-31.0); MEAN CORPUSCULAR HGB CONC 32.2 g/dL (32.0-36.0); MEAN CORPUSCULAR VOLUME 89.8 fL (81.0-99.0); MEAN PLATELET VOLUME 10.1 fL (7.9-10.8); MONOCYTES # (AUTO) 0.6 10^3/uL (0.0-1.0); MONOCYTES % (AUTO) 2.9 %; NEUTROPHILS # (AUTO) 17.3 10^3/uL (1.5-6.6); PLT - PLATELET COUNT 289 10^3/uL (130-450); RED BLOOD COUNT 5.32 10^6/uL (4.20-5.40); RED CELL DISTRIBUTION WIDTH 12.9 % (12.0-15.0); WHITE BLOOD COUNT 19.9 x10^3/uL (4.8-10.8)
[2022-07-05 09:53] LABS: BILIRUBIN,URINE NEGATIVE (NEGATIVE); GLUCOSE, URINE (UA) NEGATIVE (NEGATIVE); KETONES,URINE (UA) 15 mg/dL (NEGATIVE); LEUKOCYTE ESTERASE, URINE NEGATIVE (NEGATIVE); NITRITE,URINE NEGATIVE (NEGATIVE); OCCULT BLOOD,URINE NEGATIVE (NEGATIVE); PROTEIN,URINE NEGATIVE (NEGATIVE); UROBILINOGEN,URINE 0.2 (NORMAL) E.U./dL (NORMAL)
[2022-07-05] MEDS ORDERED: KETOROLAC 30 MG/ML VIAL IVP STA (09:53)
[2022-07-05] MEDS ORDERED: MORPHINE 2 MG/ML CARPUJECT IVP STA (09:53)
[2022-07-05] MEDS ORDERED: DROPERIDOL 5 MG/2 ML VIAL IVP STA (09:53)
[2022-07-05] MEDS ORDERED: SODIUM CHLORIDE 0.9% 1,000 ML IV STA (09:54)
[2022-07-05 10:02] LABS: CLARITY,URINE SL. CLOUDY (CLEAR); HCG UR QUAL NEGATIVE
[2022-07-05 10:05] LABS: BACTERIA,URINE Moderate /HPF (None Seen); RBC,URINE None Seen /HPF (0-5); SQUAMOUS EPITHELIAL CELL,UR MANY Squamous (<= Few)
[2022-07-05 10:07] LABS: ALBUMIN 3.9 g/dL (3.2-5.5); ALBUMIN/GLOBULIN RATIO 0.9 (1.0-2.2); BILIRUBIN,TOTAL 0.8 mg/dL (0.2-1.0); CREATININE 0.6 mg/dL (0.4-1.0); POTASSIUM 3.5 mmol/L (3.5-5.0); TOTAL PROTEIN 8.2 g/dL (6.7-8.2)
[2022-07-05 11:41] VITALS: BP 111/69
--- NOTE | 2022-07-05 11:51 | ED Physician Documentation ---
History of Present Illness - Stated complaint Stated Complaint: VOMITING,L SHOULDER PX - Chief complaint Chief Complaint: Abd Pain - History obtained from History obtained from: Patient - History of Present Illness Timing: Today Pain level max: 4 Pain level now: 3 - Additonal information Additional information: 22-year-old female states that she started vomiting this morning. She does use marijuana daily. She has a history of fibromyalgia as well and states that occasionally her fibromyalgia will cause her to vomit. She did attempt to smoke marijuana this morning to help with the nausea but this did not help. Denies any possibility of . No fevers. No chills. Mild crampy diffuse abdominal pain. No urinary symptoms. She is also complaining of left shoulder pain that is consistent with her "fibromyalgia flare". Denies any injury to the shoulder. No swelling. Review of Systems Constitutional: denies: Fever, Chills Nose: denies: Rhinorrhea / runny nose, Congestion Respiratory: denies: Cough GI: reports: Nausea, Vomiting. denies: Diarrhea : denies: Dysuria, Frequency, Hesitancy, Now EGA Skin: denies: Rash Musculoskeletal: denies: Neck pain, Back pain Neurologic: denies: Headache PD PAST MEDICAL HISTORY - Past Medical History Cardiovascular: None Respiratory: None Neuro: Other Endocrine/Autoimmune: None GI: None [employer]: Other : Chronic bladder infection HEENT: None Psych: Depression, Anxiety Musculoskeletal: Fibromyalgia Derm: None - Past Surgical History Past Surgical History: No - Present Medications Home Medications: Ambulatory Orders Medication Instructions Recorded Confirmed DULoxetine [Cymbalta] 60 mg DAILY 10/18/19 07/05/22 Ethinyl Estradiol/Drospirenone 1 tab DAILY 10/18/19 07/05/22 [Gillian 28 Tablet] buPROPion HCL [Bupropion Xl] 150 mg PO DAILY 01/16/20 07/05/22 Amitriptyline [Elavil] 25 mg PO DAILY 07/05/22 07/05/22 hydrOXYzine HCL [Hydroxyzine HCl] 25 mg PO DAILY 07/05/22 07/05/22 - Allergies Allergies/Adverse Reactions: Allergies Allergy/AdvReac Type Severity Reaction Status Date / Time prednisone AdvReac extreme Verified 07/05/22 09:24 shaking - Social History Does the pt smoke?: No Smoking Status: Never smoker Does the pt drink ETOH?: No Does the pt have substance abuse?: No - Immunizations Immunizations are current?: Yes - POLST Patient has POLST: No PD ED PE NORMAL - Vitals Vital signs reviewed: Yes - General General: Alert and oriented X 3, No acute distress - HEENT HEENT: PERRL, Moist mucous membranes - Neck Neck: Supple, no meningeal sign - Cardiac Cardiac: RRR, Strong equal pulses - Respiratory Respiratory: No respiratory distress, Clear bilaterally - Abdomen Abdomen: Soft, Non tender, Non distended - Derm Derm: Warm and dry - Extremities Extremities: No deformity - Neuro Neuro: Alert and oriented X 3 - Psych Psych: Normal mood, Normal affect Results - Vitals Vitals: Vital Signs - 24 hr 07/05/22 07/05/22 07/05/22 09:21 11:40 12:02 Temperature 36 C L 36.6 C Heart Rate 114 H 93 88 Respiratory 18 18 22 Rate Blood Pressure 100/87 H 111/69 111/69 O2 Saturation 100 100 100 Oxygen O2 Source Room air - Labs Labs: Laboratory Tests 07/05/22 07/05/22 07/05/22 09:40 09:42 09:42 WBC 19.9 H RBC 5.32 Hgb 15.4 Hct 47.8 H MCV 89.8 MCH 28.9 MCHC 32.2 RDW 12.9 Plt Count 289 MPV 10.1 Neut # (Auto) 17.3 H Lymph # (Auto) 1.7 [place] # (Auto) 0.6 Eos # (Auto) 0.2 Baso # (Auto) 0.1 Absolute Nucleated RBC 0.00 Nucleated RBC % 0.0 Sodium 135 Potassium 3.5 Chloride 100 L Carbon Dioxide 24 Anion Gap 11.0 BUN 14 Creatinine 0.6 Estimated GFR (MDRD) 124 Glucose 157 H Calcium 9.0 Total Bilirubin 0.8 AST 19 ALT 21 Alkaline Phosphatase 55 Total Protein 8.2 Albumin 3.9 Globulin 4.3 H Albumin/Globulin Ratio 0.9 L Lipase 72 H Urine Color YELLOW Urine Clarity SL. CLOUDY Urine pH 6.0 Ur Specific [place] >=1.030 H Urine Protein NEGATIVE Urine Glucose (UA) NEGATIVE Urine Ketones 15 H Urine Occult Blood NEGATIVE Urine Nitrite NEGATIVE Urine Bilirubin NEGATIVE Urine Urobilinogen 0.2 (NORMAL) Ur Leukocyte Esterase NEGATIVE Urine RBC None Seen Urine WBC 4-5 Ur Squamous Epith Cells MANY Squamous H Urine Bacteria Moderate H Ur Microscopic Review INDICATED Urine Culture Comments NOT INDICATED Urine HCG, Qual NEGATIVE PD Medical Decision Making - ED course Complexity details: reviewed results, re-evaluated patient, considered differential, d/w patient ED course: Patient is well-appearing, nontoxic. Afebrile. Given IV saline, droperidol, Toradol and IV morphine. Pain and vomiting fully resolved. Tolerating p.o. without difficulty. Patient requesting to go home at this time. No significant findings on CBC other than a leukocytosis of 19,000. ER abdominal panel is relatively unremarkable except a mildly elevated glucose and mildly elevated lipase. Urinalysis appears contaminated, does not appear to be acutely infected. Departure - Departure Disposition: 01 Home, Self Care Clinical Impression: Vomiting Qualifiers: Vomiting type: unspecified Nausea presence: with nausea Qualified Code(s): R11.2 - Nausea with vomiting, unspecified Condition: Good Instructions: ED Nausea Vomiting Follow-Up: Sarah Shin PA-C [Primary Care Provider] - Within 1 week Comments: Please follow-up with your doctor for further care. Drink plenty of fluids, go home and rest today. Forms: Activity restrictions Discharge Date/Time: 07/05/22 12:08
== END 2022-07-05 12:08 | disposition home or self-care (01) ==
LOC: ED 09:16
DX: R11.2 Nausea with vomiting, unspecified (principal)
CPT/HCPCS: 36415; 80053; 81001; 81003; 81025; 83690; 85025; 87086; 96374; 96375; 99284

== ENCOUNTER 2022-07-07 13:59 | Outpatient (CLI) | payer OTHER ==
[2022-07-08 01:05] LABS: CHLAMYDIA TRACHOMATIS DNA NEGATIVE (NEGATIVE)
[2022-07-08 01:06] LABS: NEISSERIA GONORRHOEAE DNA NEGATIVE (NEGATIVE); TRICHOMONAS VAGINALIS DNA NEGATIVE (NEGATIVE)
[2022-07-08 05:11] LABS: RPR Non Reactive (Non Reactive)
[2022-07-08 07:09] LABS: HIV SCREEN 4TH GENERATION Non Reactive (Non Reactive)
[2022-07-09 14:08] LABS: HSV 1 IGG TYPE SPEC <0.91 index (0.00-0.90); HSV 2 IGG SUPPLEMENTAL TEST Negative (Negative); HSV 2 IGG TYPE SPEC 2.66 index (0.00-0.90)
== END 2022-07-07 14:00 | disposition home or self-care (01) ==
LOC: LAB.N 13:59
PROVIDERS: ATTEND Physician Assistant Medical
DX: Z20.2 Contact with and (suspected) exposure to infections with a predominantly sexual mode of transmission (principal)
CPT/HCPCS: 36415; 86592; 86695; 86696; 87389; 87491; 87591; 87661

== ENCOUNTER 2023-08-28 08:00 | Outpatient (CLI) | payer OTHER ==
[2023-08-28 22:18] LABS: BACTERIAL VAGINOSIS DNA NEGATIVE (NEGATIVE)
[2023-08-28 22:19] LABS: CANDIDA GLABRATA DNA NEGATIVE (NEGATIVE); CANDIDA GROUP DNA NEGATIVE (NEGATIVE); CANDIDA KRUSEI DNA NEGATIVE (NEGATIVE); TRICHOMONAS VAGINALIS DNA NEGATIVE (NEGATIVE)
== END 2023-08-28 23:59 | disposition home or self-care (01) ==
LOC: LAB.WC 08:00
PROVIDERS: ATTEND Obstetrics & Gynecology
DX: N89.8 Other specified noninflammatory disorders of vagina (principal)
CPT/HCPCS: 81514